=== PATIENT | female | born 1980 | race Caucasian/White ===

== ENCOUNTER → 2019-10-12 | Outpatient (CLI) | payer BC ==
[2019-10-12 18:50] LABS: Influenza A Positive (NEGATIVE); Influenza B Negative (NEGATIVE)
== END ==
LOC: LAB SHORT 16:23
PROVIDERS: Family Medicine
DX: R05 Cough (principal); R50.9 Fever, unspecified
CPT/HCPCS: 87804

== ENCOUNTER → 2021-01-17 | Outpatient (CLI) | payer BC ==
[2021-01-19 16:10] LABS: HPV 16 Negative (Negative); HPV 18 Negative (Negative); HPV OTHER HR TYPES Negative (Negative)
== END ==
LOC: LAB 16:42 → LAB SHORT 16:42
PROVIDERS: Obstetrics & Gynecology
DX: Z01.419 Encounter for gynecological examination (general) (routine) without abnormal findings (principal)
CPT/HCPCS: 87624; G0123